=== PATIENT | female | born 1960 | race Caucasian/White ===

== ENCOUNTER → 2019-11-04 09:46 | Emergency (ER) | payer OTHER, MEDICAID, SELFPAY ==
[2019-11-04 09:58] VITALS: BP 132/75; PULSE 109; RESP 15; TEMP 36.9; O2SAT 98
--- NOTE | 2019-11-04 10:03 | ED.OVERDOSE ---
HPI - Overdose General Chief Complaint: Overdose Stated Complaint: possibly took too much dilantin Time Seen by Provider: 11/04/19 10:00 Source: patient and RN notes reviewed Mode of arrival: ambulatory Limitations: no limitations History of Present Illness HPI Narrative: Pt is a 59 y/o female presenting to the ED c/o possible overdose. Pt reports she is concerned that she has overdosed on her prescription for Dilantin. Pt notes she rotates her doses of medications as prescribed, stating she takes 3 doses 1 day and 2 doses every other day. Pt states her Sx's have occurred when she overdosed on Dilantin previously. Pt also reports neck pain, nausea, lightheadedness, generalized weakness, shaking, and chills, but denies fever, poor appetite, cough, congestion, or SOB. Pt states she has been feeling bad for about 2 weeks intermittently and also notes she has been experiencing HTN. Pt states she felt grossly fine yesterday throughout the day. Onset (ago): week(s) (2) Associated symptoms: nausea/vomiting (Nausea, no vomiting), other (Neck pain) and tinnitus (Lightheadedness; generalized weakness; shaking; Chills) Related Data Home Medications Medication Instructions Recorded Confirmed phenytoin sodium extended PO 11/04/19 [Dilantin Extended] Allergies Allergy/AdvReac Type Severity Reaction Status Date / Time Penicillins Allergy Unknown Unknown Verified 11/04/19 11:25 prednisone Allergy Dizziness Verified 11/04/19 11:25 Review of Systems Review of Systems: All systems reviewed & are unremarkable except as noted in HPI and below Constitutional: Constitutional: Reports chills, Denies fever(s), Denies poor appetite, Reports weakness (Generalized) and Reports other (Shaking) ENT: Denies nasal congestion Respiratory: Respiratory: Denies cough and Denies dyspnea Gastrointestinal: Gastrointestinal: Reports nausea Musculoskeletal: Musculoskeletal: Reports neck pain Neurologic: Reports other (Lightheadedness) [facility] Past Medical History Medical History (Updated 11/04/19 @ 13:23 by Milton Guerra MD) Anxiety Diverticulitis Endometriosis Epicondylitis Seizures Surgical History Surgical History H/O brain surgery Age 11 H/O tubal ligation History of History of cholecystectomy History of left salpingo-oophorectomy Family History Family History Mother Hypertension Social History Social History Smoking status: Never smoker Second hand tobacco smoke exposure: No Alcohol intake: current Gender identity (if verbalized by the patient): Female Exam Const: General: healthy appearing, no acute distress and alert Nutritional Appearance: well nourished HENMT: Mouth: Yes lip normal Eyes: Conjunctivae: conjunctivae normal Resp: Effort & Inspection: normal respiratory effort Auscultation: clear to auscultation bilaterally Cardio: Rate: tachycardic (Mildly) Rhythm: regular rhythm Back/Spine/Pelvis: Other: Full ROM Skin: General skin exam: normal color Other: Warm; Dry Neuro: General: patient oriented x3 Speech: normal speech Extrem: General: full ROM Psych: Mental Status: mental status grossly normal Affect: Anxious affect present Course Vital Signs Vital signs: Vital Signs Temperature 36.9 C 11/04/19 09:58 Pulse Rate 109 H 11/04/19 09:58 Respiratory Rate 15 11/04/19 09:58 Blood Pressure 132/75 11/04/19 09:58 Pulse Oximetry 98 11/04/19 09:58 Temperature 36.6 C 11/04/19 11:26 Pulse Rate 86 11/04/19 11:26 Respiratory Rate 14 11/04/19 11:26 Blood Pressure 115/67 11/04/19 11:26 Pulse Oximetry 98 11/04/19 11:26 MDM - Overdose MDM Narrative Medical decision making narrative: labs largely reassuring. She is likely mildly dehydrated. Differential Diagnosis Differential diagnosis: Likely other (UTI, anemia,
[2019-11-04 10:28] VITALS: BP 128/72; PULSE 106; RESP 10; TEMP 36.6; O2SAT 98
[2019-11-04 10:43] LABS: Basophils Percent Auto 0.7 % (0.2-1.2); Eosinophils Absolute Auto 0.1 K/mm3 (0-0.3); Eosinophils Percent Auto 1.7 % (0-4.4); Hematocrit 44.2 % (37.0-47.0); Hemoglobin 14.8 g/dL (12.0-15.0); Immature Granulocyte Absolute 0.01 K/mm3 (0.00-0.031); Immature Granulocyte Percent A 0.3 % (0-0.5); Lymphocytes Percent Auto 31.1 % (18.3-44.2); Mean Corpuscular HGB Conc 33.5 g/dl (32-36); Mean Corpuscular Volume 98.4 fl (80-100); Mean Platelet Volume 10.9 fl (7.4-10.4); Monocytes Absolute Auto 0.4 K/mm3 (0.1-0.6); Monocytes Percent Auto 13.1 % (2.6-8.5); Neutrophils Absolute Auto 1.5 K/mm3 (1.3-6.7); Neutrophils Percent Auto 53.1 % (45.5-73.1); Platelet Count Result 232 k/mm3 (150-375); Red Blood Count 4.49 M/mm3 (4.2-5.4); Red Cell Distribution Width 11.9 % (11.5-14.5); White Blood Count 2.9 K/mm3 (4.5-10.0)
[2019-11-04 10:56] LABS: Alanine Aminotransferase 19 U/L (4-35); Albumin Level 4.6 g/dL (3.5-5.1); Alkaline Phosphatase 96 U/L (38-126); Aspartate Amino Transferase 33 U/L (14-36); Bilirubin,Total 0.3 mg/dL (0.2-1.3); Blood Urea Nitrogen 12 mg/dL (7-17); Calcium 9.4 mg/dL (8.4-10.2); Carbon Dioxide 29 mmol/L (22-30); Chloride 100 mmol/L (98-107); Estimated CRCL calculation 69 ml/min; Estimated Glomerular Filt Rate > 60; Glucose 129 mg/dL (65-105); Potassium 3.8 mmol/L (3.4-5.0); Sodium 141 mmol/L (137-145)
[2019-11-04 11:01] LABS: Phenytoin Dilantin 11 ug/mL (10-20)
[2019-11-04 11:20] LABS: Add Urine Microscopic? NO; Appearance Urine Clear (Clear); Bilirubin Urine Negative (Negative); Blood Urine Negative (Negative); Color Urine Colorless (Yellow); Glucose Urine UA Negative (Negative); Ketones Urine Negative (Negative); Leukocyte Esterase Ur Negative LEU/UL (Negative); Nitrate Urine Negative (Negative); Protein Urine Negative (Negative); Urobilinogen Urine Negative mg/dL (<2.0)
[2019-11-04 11:22] LABS: Specific Grav Ur 1.004 (1.001-1.035)
[2019-11-04] MEDS: SODIUM CHLORIDE 0.9% IV 1,000 ML 999 ML IV CONT (11:22)
[2019-11-04 11:26] VITALS: BP 115/67; PULSE 86; RESP 14; TEMP 36.6; O2SAT 98
--- NOTE | 2019-11-09 12:00 | PC.NURSE ---
LATE ENTRY This note is being entered to document information to the patient's record. The following information was omitted on 11/04/2019. Patient received 1000 ml normal saline, infusion discontinued at 1230, and patient tolerated well.
== END ==
PROVIDERS: Emergency Provider Emergency Medicine
DX: R53.83 Other fatigue (principal); R56.9 Unspecified convulsions; N80.9 Endometriosis, unspecified
CPT/HCPCS: 36415; 80053; 80185; 81003; 81025; 85025; 96360; 99283; J7030

== ENCOUNTER 2021-09-13 22:54 | Emergency (ER) | payer OTHER, SELFPAY ==
--- NOTE | ~2021-09-13 | CT_ITS ---
EXAMINATION: CT brain wo con, CT facial bones wo con DATE: 09/14/2021 04:19 INDICATION: Seizure presenting with headache and trauma to the face and head post fall TECHNIQUE: 1. Computed tomography (CT) of the head was performed without intravenous contrast. Sagittal and byron nal reconstructions were obtained. The dose-length product was 605.33 mGy-cm. 2. CT of the facial bones and maxillofacial region was performed without intravenous contrast. Sagitt al and coronal reconstructions were obtained. The dose-length product was 263.30 mGy-cm. COMPARISON: Head CT dated 09/18/[address] dated 02/04/2004 FINDINGS: Head CT: No acute calvarial fracture. Postoperative change of prior right frontal craniotomy and left parietal josephine hole. Several small metallic densities, a couple on the anterior margin of the medial right fro ntal lobe and small cluster more posteriorly in the region of the head of the right caudate nucleus. There is encephalomalacia with tract low-attenuation gliosis extending along the medial anterior righ t frontal lobe between the region of the metallic foreign bodies. No acute intracranial hemorrhage, a cute infarction or abnormal extra axial fluid collection. Mild asymmetry in expected dilation of the anterior horns of the lateral ventricles in the region of the previous noted either chronic posttraum atic and/or postoperative change. Ventricles are otherwise normal and symmetric. No mass/mass effect. Maxillofacial CT: Minimally displaced acute fracture of the right nasal bone with overlying soft tissue swelling. No ot her maxillofacial fractures identified. Specifically the diaz of the orbits, paranasal sinuses, zygo matic arches, pterygoid plates and mandible are normal. Chronic leftward bowing of the nasal septum w hich is unchanged since 2003. Mucosal thickening in the paranasal sinuses and chronic opacification o f the left frontal sinus. Mastoid air cells and middle ear cavities are clear. Moderate disc height l oss at C5-C6, otherwise mild cervical spondylosis. IMPRESSION: 1. Minimally displaced fracture of the right nasal bone. 2. No calvarial fracture or acute intracranial process. 3. 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 Reviewed, dictated and finalized at location . [employer] IMPRESSION: 1. Minimally displaced fracture of the right nasal bone. 2. No calvarial fracture or acute intracranial process. 3. Stable appearance of chronic encephalomalacia in the right frontal lobe like ly sequela of prior trauma and/or surgery.
[2021-09-13 23:06] VITALS: BP 135/97; PULSE 110; RESP 20; TEMP 36.6; O2SAT 97
[2021-09-14] VITALS (10 sets, daily range): BP systolic 114–132; BP diastolic 58–72; PULSE 73–94; RESP 10–17; O2SAT 98
--- NOTE | 2021-09-14 03:21 | PC.NURSE ---
Refused to put on gown. ED MD notified. Pt reports she had a seizure and fell, hitting dresser. missed her seizure medication today per pt. no acute distress. bruising and abrasions without active bleeding to face. states I think I broke my nose. placed on cardiac/bp/O2 monitoring. call light in reach.
[2021-09-14 04:37] LABS: Basophils Absolute Auto 0.1 K/mm3 (0.0-0.1); Basophils Percent Auto 0.8 % (0.2-1.2); Eosinophils Absolute Auto 0.2 K/mm3 (0-0.3); Eosinophils Percent Auto 1.9 % (0-4.4); Hematocrit 39.1 % (37.0-47.0); Hemoglobin 13.3 g/dL (12.0-15.0); Immature Granulocyte Absolute 0.02 K/mm3 (0.00-0.031); Immature Granulocyte Percent A 0.3 % (0-0.5); Lymphocytes Absolute Auto 1.26 K/mm3 (0.9-3.2); Mean Corpuscular Hemoglobin 33.3 pg (26-34); Mean Platelet Volume 10.9 fl (7.4-10.4); Monocytes Absolute Auto 0.6 K/mm3 (0.1-0.6); Monocytes Percent Auto 7.4 % (2.6-8.5); Neutrophils Absolute Auto 5.8 K/mm3 (1.3-6.7); Neutrophils Percent Auto 73.6 % (45.5-73.1); Platelet Count Result 217 k/mm3 (150-375); Red Blood Count 3.99 M/mm3 (4.2-5.4); Red Cell Distribution Width 11.9 % (11.5-14.5); White Blood Count 7.9 K/mm3 (4.5-10.0)
[2021-09-14 04:50] LABS: Anion Gap 6 mmol/L (8-16); Blood Urea Nitrogen 15 mg/dL (7-17); Calcium 9.1 mg/dL (8.4-10.2); Carbon Dioxide 28 mmol/L (22-30); Chloride 105 mmol/L (98-107); Estimated CRCL calculation 67 ml/min; Estimated Glomerular Filt Rate > 60; Glucose 117 mg/dL (65-110); Phenytoin Dilantin 9 ug/mL (10-20); Sodium 139 mmol/L (137-145)
--- NOTE | 2021-09-14 06:14 | PC.NURSE ---
pt resting on stretcher c eyes closed. family at bedside. will continue to monitor.
--- NOTE | 2021-09-14 06:15 | PC.NURSE ---
Pt here c family, reports she probably had a seizure but is unsure. arrives with bruising and edema to bilateral eyes and to nose. pt has requested aspirin for pain, which this RN explained that MD wouldn't be able to RX until bleeding to head ruled out. pt verbalized understanding. Attempted to give pt hydrocodone, which she refused. awaiting CT reports. will continue to monitor.
--- NOTE | 2021-09-14 06:40 | ED.GENADULT ---
HPI - General Adult General Chief complaint: Syncope Stated complaint: fall forward onto face Time Seen by Provider: 09/14/21 03:38 History of Present Illness HPI narrative: Patient is a 61-year-old female who presents ER status post seizure. Patient reports she missed 1 dose of her antiepileptic medication and took another dose later than she typically does. Patient then started having her typical aura and then fell flat on her face. She has bruising and swelling and tenderness over her nose. No change in vision or hearing. No focal weakness in arm or leg. No slurred speech. She does not take any blood thinners. She sees Dr. 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 Patient is able to breathe through her nose without issue. She had brief epistaxis. Related Data Home Medications Medication Instructions Recorded Confirmed cranberry fruit concentrate 250 mg 250 mg PO TID PRN 12/05/20 chewable tablet Allergies Allergy/AdvReac Type Severity Reaction Status Date / Time Penicillins Allergy Mild rash Verified 09/14/21 03:19 prednisone Allergy Mild Dizziness, Verified 09/14/21 03:19 rash Review of Systems Review of Systems: All systems reviewed & are unremarkable except as noted in HPI and below Constitutional: Constitutional: Denies chills and Denies fever(s) ENT: Denies nasal congestion and Denies sore throat Comments: Nasal pain Cardiovascular: Cardiovascular: Denies chest pain, Denies rapid heart rate and Denies radiating jaw, neck or arm pain Musculoskeletal: Musculoskeletal: Denies arthralgias, Denies joint swelling and Denies muscle cramps Neurologic: Denies headache(s), Denies focal weakness and Denies numbness Comments: Seizure [facility] Past Medical History Medical History (Updated 09/14/21 @ 06:42 by Mike Ling MD) Anxiety Diverticulitis Endometriosis Epicondylitis Seizures Surgical History Surgical History H/O brain surgery Age 11 H/O tubal ligation History of History of cholecystectomy History of left salpingo-oophorectomy Family History Family History Mother Hypertension Social History Social History Smoking status: Never smoker Second hand tobacco smoke exposure: No Alcohol intake: current Drinks per week: 1 Alcohol use details: pt reports no alcohol use in october but drinks weekly Substance use: never Substance use type: does not use Additional living arrangements comments: her Additional occupation/education comments: works at [employer] Gender identity (if verbalized by the patient): Female Spiritual care concerns: No Exam Narrative: GENERAL: Well-appearing, well-nourished, and in no acute distress. HEAD: Normocephalic, atraumatic. EYES: PERRL and EOMI. bruising under the eyes bilaterally. ENT: Mucous membranes moist. Swelling and tenderness over the nose. Old blood in the naris bilaterally. CHEST: Clear to auscultation. No respiratory distress. HEART: Regular rate and rhythm. Normal peripheral pulses. ABDOMEN: Soft, nontender, nondistended EXTREMITIES: Normal range of motion. No edema. NEURO: Alert and oriented x3. PSYCH: Normal mood and affect. Course Course Emergency Course: Patient informed of results. Recommend she take her phenytoin today through issues post take it yesterday so that she can become therapeutic. Discharge home. Vital Signs Vital signs: Vital Signs Temperature 97.8 F 09/13/21 23:06 Pulse Rate 110 H 09/13/21 23:06 Respiratory Rate 20 09/13/21 23:06 Blood Pressure 135/97 H 09/13/21 23:06 Pulse Oximetry 97 09/13/21 23:06 Temperature 97.8 F 09/13/21 23:06 Pulse Rate 81 09/14/21 05:30 Respiratory
== END 2021-09-14 07:04 | disposition home or self-care (01) ==
PROVIDERS: Emergency Provider Emergency Medicine; PCP Family Medicine
DX: R56.9 Unspecified convulsions (principal); S02.2XXA Fracture of nasal bones, initial encounter for closed fracture; W19.XXXA Unspecified fall, initial encounter
CPT/HCPCS: 36415; 70450; 70486; 80048; 80185; 85025; 99284

== ENCOUNTER 2021-09-22 10:25 | Outpatient (CLI) | payer OTHER, SELFPAY | END 2021-09-22 10:26 | disposition home or self-care (01) | PROVIDERS: PCP Nurse Practitioner Adult Health; Visit Provider Psychiatry & Neurology Neurology | DX: R56.9 Unspecified convulsions (principal) | CPT/HCPCS: 36415; 80186 ==

== ENCOUNTER 2023-04-06 09:00 | Outpatient (NON) | payer BC, OTHER, SELFPAY | END 2023-04-06 09:01 | disposition home or self-care (01) | LOC: ANHLAB 04-07 14:48 | PROVIDERS: PCP Family Medicine; Visit Provider Nurse Practitioner | DX: D17.22 Benign lipomatous neoplasm of skin and subcutaneous tissue of left arm (principal) | CPT/HCPCS: 88304 ==